=== PATIENT | male | born 1950 | race Two or more races ===

== ENCOUNTER → 2024-12-13 | Outpatient (CLI) | payer MEDICARE, MEDICAID, SELFPAY ==
[2024-12-13 10:31] LABS: Basophils # (Auto) 0.1 Thou/mm3 (0.0-0.2); Basophils % (Auto) 1 % (0-2.5); Eosinophils # (Auto) 0.4 Thou/mm3 (0.0-0.5); Eosinophils % (Auto) 4 % (0-10); Hematocrit 47.7 % (41.0-53.0); Hemoglobin 15.6 g/dL (13.5-16.0); Immature Granulocytes % (Auto) 0 % (0-0); Immature Granulocytes Auto 0.04 Thou/mm3 (0.00-0.00); Lymphocytes # (Auto) 2.8 Thou/mm3 (1.0-4.8); Lymphocytes % (Auto) 28 % (10-50); Mean Corpuscular HGB Conc 32.7 g/dl (31.0-37.0); Mean Corpuscular Hemoglobin 31.2 pg (25.0-35.0); Mean Corpuscular Volume 95 fL (80-100); Monocytes # (Auto) 0.6 Thou/mm3 (0.0-0.8); Monocytes % (Auto) 6 % (0-12); Neutrophils # (Auto) 6.2 Thou/mm3 (1.8-7.7); Neutrophils % (Auto) 62 % (37-80); Nucleated Red Blood Cell % 0 /100 WBC (0); Platelet Count 296 Thou/mm3 (140-440); RDW Standard Deviation 43.8 fL (35.1-43.9)
[2024-12-13 10:41] LABS: Collection Type, Urine Clean Catch; Squamous Epithelial Cell,Urine 0 /hpf (0-5)
[2024-12-13 10:43] LABS: Glucose Estimated Average 246 mg/dL (80-131); Hemoglobin A1C 10.2 % Hgb (4.8-6.0)
[2024-12-13 10:52] LABS: Alanine Aminotransferase 31 U/L (10-49); Albumin, Serum 4.6 gm/dL (3.4-4.8); Albumin/Globulin Ratio 1.9 (1.2-2.2); Alkaline Phosphatase 134 U/L (46-116); Anion Gap 8 (7-16); Aspartate Amino Transferase 14 U/L (0-34); BUN/Creatinine Ratio 23 Ratio (12-20); Bilirubin,Total 0.6 mg/dL (0.3-1.2); Blood Urea Nitrogen 18 mg/dL (9-23); Calcium 9.7 mg/dL (8.3-10.6); Calcium (Corrected) 9.7 mg/dL (8.5-10.1); Carbon Dioxide 30.2 mMol/L (20.0-31.0); Cardiac Risk Estimate 3.9 RATIO (4.0-6.7); Chloride 103 mMol/L (98-107); Cholesterol 147 mg/dL (132-200); Creatinine (Component) 0.8 mg/dL (0.6-1.3); Globulin 2.4 gm/dL (2.3-3.5); Glucose 122 mg/dL (74-106); HDL Cholesterol 38 mg/dL (40-60); LDL Cholesterol,Calculated 86 mg/dL (0-130); Osmolality,Calculated 284 (275-295); Potassium 4.8 mMol/L (3.4-5.1); Sodium 141 mMol/L (136-145); Triglycerides 115 mg/dL (30-150); eGFR > 60 See Note
[2024-12-13 11:38] LABS: Bilirubin,Urine Negative (Negative); Blood,Urine Negative (Negative); Clarity,Urine Clear (Clear/Hazy); Color,Urine Lt-Yellow (Lt Yel-Yel); Glucose, Urine 4+ (Negative); Ketones,Urine Negative (Negative); Leukocyte Esterase,Urine Negative (Negative); Nitrite,Urine Negative (Negative); Protein,Urine Trace (Neg - Trace); RBC,Urine 1 /hpf (0-3); Specific Gravity,Urine 1.026 (1.001-1.035); Urobilinogen,Urine Negative mg/dL (0.0-1.0); WBC,Urine < 1 /hpf (0-5)
[2024-12-13 11:44] LABS: Creatinine MALB Rnd Ur 72 mg/dL (30-125); Microalbumin Creat Ratio 83 mg/gCrea (<30); Microalbumin, Random Urine 60 mg/L (0-300)
== END | disposition home or self-care (01) ==
PROVIDERS: PCP Internal Medicine; Referring Provider Internal Medicine; Visit Provider Internal Medicine
DX: E11.9 Type 2 diabetes mellitus without complications (principal); I10 Essential (primary) hypertension; E78.5 Hyperlipidemia, unspecified
CPT/HCPCS: 36415; 80053; 80061; 81001; 82043; 82570; 83036; 85025

== ENCOUNTER → 2025-03-27 | Outpatient (CLI) | payer OTHER, MEDICAID, SELFPAY ==
[2025-03-27 10:48] LABS: Glucose Estimated Average 206 mg/dL (80-131); Hemoglobin A1C 8.8 % Hgb (4.8-6.0)
[2025-03-27 11:07] LABS: Creatinine MALB Rnd Ur 84 mg/dL (30-125); Microalbumin Creat Ratio 117 mg/gCrea (<30); Microalbumin, Random Urine 98 mg/L (0-300)
[2025-03-27 11:14] LABS: Alanine Aminotransferase 26 U/L (10-49); Albumin, Serum 4.5 gm/dL (3.4-4.8); Albumin/Globulin Ratio 1.6 (1.2-2.2); Alkaline Phosphatase 123 U/L (46-116); Anion Gap 11 (7-16); Aspartate Amino Transferase 18 U/L (0-34); BUN/Creatinine Ratio 18 Ratio (12-20); Bilirubin,Total 0.5 mg/dL (0.3-1.2); Blood Urea Nitrogen 16 mg/dL (9-23); Calcium 8.9 mg/dL (8.3-10.6); Calcium (Corrected) 8.9 mg/dL (8.5-10.1); Carbon Dioxide 27.1 mMol/L (20.0-31.0); Cardiac Risk Estimate 4.3 RATIO (4.0-6.7); Chloride 106 mMol/L (98-107); Cholesterol 121 mg/dL (132-200); Creatinine (Component) 0.9 mg/dL (0.6-1.3); Globulin 2.8 gm/dL (2.3-3.5); Glucose 141 mg/dL (74-106); HDL Cholesterol 28 mg/dL (40-60); LDL Cholesterol,Calculated 73 mg/dL (0-130); Osmolality,Calculated 290 (275-295); Potassium 4.5 mMol/L (3.4-5.1); Sodium 144 mMol/L (136-145); Total Protein 7.3 gm/dL (5.7-8.2); Triglycerides 98 mg/dL (30-150); eGFR > 60 See Note
== END | disposition home or self-care (01) ==
PROVIDERS: PCP Internal Medicine; Referring Provider Internal Medicine; Visit Provider Internal Medicine
DX: E11.9 Type 2 diabetes mellitus without complications (principal); I10 Essential (primary) hypertension; E78.5 Hyperlipidemia, unspecified
CPT/HCPCS: 36415; 80053; 80061; 82043; 82570; 83036

== ENCOUNTER → 2025-07-25 | Outpatient (CLI) | payer OTHER, MEDICAID, SELFPAY ==
[2025-07-25 11:39] LABS: Glucose Estimated Average 226 mg/dL (80-131); Hemoglobin A1C 9.5 % Hgb (4.8-6.0)
[2025-07-25 11:50] LABS: Alanine Aminotransferase 24 U/L (10-49); Albumin, Serum 4.5 gm/dL (3.4-4.8); Albumin/Globulin Ratio 1.8 (1.2-2.2); Alkaline Phosphatase 110 U/L (46-116); Anion Gap 11 (7-16); Aspartate Amino Transferase 18 U/L (0-34); BUN/Creatinine Ratio 18 Ratio (12-20); Bilirubin,Total 0.7 mg/dL (0.3-1.2); Blood Urea Nitrogen 14 mg/dL (9-23); Calcium 9.8 mg/dL (8.3-10.6); Calcium (Corrected) 9.8 mg/dL (8.5-10.1); Carbon Dioxide 24.8 mMol/L (20.0-31.0); Cardiac Risk Estimate 4.1 RATIO (4.0-6.7); Chloride 107 mMol/L (98-107); Cholesterol 120 mg/dL (132-200); Creatinine (Component) 0.8 mg/dL (0.6-1.3); Globulin 2.5 gm/dL (2.3-3.5); Glucose 98 mg/dL (74-106); HDL Cholesterol 29 mg/dL (40-60); LDL Cholesterol,Calculated 71 mg/dL (0-130); Osmolality,Calculated 285 (275-295); Potassium 4.5 mMol/L (3.4-5.1); Sodium 143 mMol/L (136-145); Total Protein 7.0 gm/dL (5.7-8.2); Triglycerides 100 mg/dL (30-150); eGFR > 60 See Note
[2025-07-25 12:52] LABS: Creatinine MALB Rnd Ur 87 mg/dL (30-125); Microalbumin Creat Ratio 83 mg/gCrea (<30); Microalbumin, Random Urine 72 mg/L (0-300)
== END | disposition home or self-care (01) ==
LOC: COPL 10:40
PROVIDERS: PCP Internal Medicine; Referring Provider Internal Medicine; Visit Provider Internal Medicine
DX: E11.9 Type 2 diabetes mellitus without complications (principal); I10 Essential (primary) hypertension; E78.5 Hyperlipidemia, unspecified
CPT/HCPCS: 36415; 80053; 80061; 82043; 82570; 83036

== ENCOUNTER 2025-08-04 18:43 | Inpatient (IN) | payer OTHER, MEDICAID, MEDICARE, SELFPAY ==
[2025-08-04 19:13] VITALS: BP 148/80; PULSE 95; RESP 18; TEMP 37.3; O2SAT 97; BMI 27.1
--- NOTE | 2025-08-04 19:15 | XR_ITS ---
Examination: Foot, right, 3 views Technique: AP, oblique, lateral views foot, 3 views Date and time of exam: August 04, 2025, 1950 hrs. Indications: Redness swelling and pain involving the foot this week Findings: Severe osteopenia Soft tissue vascular calcification Soft tissue swelling about the fourth digit with early cortical erosion involving the ungual tuft tip distal phalanx fourth digit No foreign body Impression: Suspicious for early osteomyelitis ungual tuft tip distal phalanx fourth digit, consider MRI foot without contrast follow-up
[2025-08-04 19:57] LABS: Basophils # (Auto) 0.0 Thou/mm3 (0.0-0.2); Basophils % (Auto) 1 % (0-2.5); Eosinophils # (Auto) 0.2 Thou/mm3 (0.0-0.5); Eosinophils % (Auto) 3 % (0-10); Hematocrit 45.8 % (41.0-53.0); Hemoglobin 15.1 g/dL (13.5-16.0); Immature Granulocytes Auto 0.04 Thou/mm3 (0.00-0.00); Lymphocytes # (Auto) 1.8 Thou/mm3 (1.0-4.8); Lymphocytes % (Auto) 21 % (10-50); Mean Corpuscular HGB Conc 33.0 g/dl (31.0-37.0); Mean Corpuscular Hemoglobin 31.8 pg (25.0-35.0); Mean Corpuscular Volume 96 fL (80-100); Monocytes # (Auto) 0.7 Thou/mm3 (0.0-0.8); Monocytes % (Auto) 8 % (0-12); Neutrophils # (Auto) 5.9 Thou/mm3 (1.8-7.7); Neutrophils % (Auto) 68 % (37-80); Nucleated Red Blood Cell # 0.00 Thou/mm3 (0.00-0.00); Nucleated Red Blood Cell % 0 /100 WBC (0); Platelet Count 239 Thou/mm3 (140-440); RDW Standard Deviation 45.7 fL (35.1-43.9); Red Blood Count 4.75 Miln/mm3 (4.50-5.90); White Blood Count 8.7 Thou/mm3 (3.8-10.6)
[2025-08-04 20:09] LABS: Alanine Aminotransferase 23 U/L (10-49); Albumin, Serum 4.7 gm/dL (3.4-4.8); Albumin/Globulin Ratio 1.7 (1.2-2.2); Alkaline Phosphatase 109 U/L (46-116); Anion Gap 11 (7-16); Aspartate Amino Transferase 16 U/L (0-34); BUN/Creatinine Ratio 17 Ratio (12-20); Bilirubin,Total 0.5 mg/dL (0.3-1.2); Blood Urea Nitrogen 15 mg/dL (9-23); Calcium 9.6 mg/dL (8.3-10.6); Calcium (Corrected) 9.6 mg/dL (8.5-10.1); Carbon Dioxide 24.2 mMol/L (20.0-31.0); Chloride 104 mMol/L (98-107); Creatinine (Component) 0.9 mg/dL (0.6-1.3); Estimated Creatinine Clearance 65.3 mL/min (>60); Globulin 2.7 gm/dL (2.3-3.5); Glucose 287 mg/dL (74-106); Osmolality,Calculated 288 (275-295); Potassium 4.4 mMol/L (3.4-5.1); Sodium 139 mMol/L (136-145); Total Protein 7.4 gm/dL (5.7-8.2); eGFR > 60 See Note
[2025-08-04] MEDS: Vancomycin Inj 1,000 MG in SODIUM CHLORIDE 0.9% 250 ML 250 ML 150 MG IV (20:09)
[2025-08-04] MEDS: BACITRACIN OINT 1 GM PACKET TOP (20:10)
--- NOTE | 2025-08-04 20:25 | EDNOTE_ITS ---
ED Skin Abcess FB-RME/HPI General Chief complaint: Ankle/Foot Injury Stated complaint: RIGHT 4TH TOE PURPLE/BURNING FOR AWHILE Time Seen by Provider: 08/04/25 18:46 Arrival date/time: 08/04/25 18:43 This is a case of 75-year-old male with history of diabetes came in in the emergency room due to pain swelling redness on the fourth toe right foot patient states that he noticed the pain 1 week prior to arrival in the emergency room with some redness and swelling worsening of the symptoms now there an open wound on the posterior aspect of the fourth toe with drainage and swelling and the redness extended on his right foot due to worsening of the symptoms this patient decided to sought consult here in the emergency room Limitations: no limitations Related Data Allergies Allergy/AdvReac Type Severity Reaction Status Date / Time Penicillins Allergy Severe Swelling Verified 08/04/25 18:49 of Lip/Tongue/Throat Review of Systems Review of Systems Systems Reviewed: All systems reviewed, normal except as documented Constitutional Constitutional: Reports system reviewed and no additional complaints, except as documented and Reports as per HPI Cardiovascular Cardiovascular: Reports system reviewed and no additional complaints, except as documented and Reports as per HPI Respiratory Respiratory: Reports system reviewed and no additional complaints, except as documented and Reports as per HPI Gastrointestinal Gastrointestinal: Reports system reviewed and no additional complaints, except as documented and Reports as per HPI Genitourinary Genitourinary: Reports system reviewed and no additional complaints, except as documented and Reports as per HPI Integumentary/Breasts Skin/Breast: Reports other (Toe ulcer cellulitis foot) Neurologic Neurologic: Reports system reviewed and no additional complaints, except as documented and Reports as per HPI Past Medical History Past Medical History CARDIAC: Positive Cardiac Disorders, Hypercholesterolemia and Hypertension; Negative Congestive Heart Failure RESPIRATORY: Negative Chronic Obstructive Pulmonary Disease (COPD) GENITOURINARY: Negative Renal Disease ENDOCRINE: Positive Endocrine Disorders and Diabetes Mellitus Type 2; Negative Diabetes Mellitus Type 1 Social History SMOKING STATUS: Never smoker ED Exam General Limitations: Present no limitations General appearance: Present alert, in no apparent distress and other (Patient is awake alert oriented not in distress nontoxic looking well-hydrated well- nourished) Head Head exam: Present atraumatic, normocephalic and normal inspection Eye Eye exam: Present normal appearance, PERRL and EOMI ENT ENT exam: Present normal exam, normal oropharynx and mucous membranes moist Neck Neck exam: Present normal inspection, full ROM and trachea midline Chest Chest inspection: Present normal inspection and symmetric chest wall rise; Absent tenderness Respiratory Respiratory exam: Present normal lung sounds bilaterally; Absent respiratory distress, wheezes, stridor, accessory muscle use or prolonged expiratory phase Cardiovascular Cardiovascular exam: Present regular rate, normal rhythm and normal heart sounds; Absent bradycardia, tachycardia, irregular rhythm, systolic murmur or diastolic murmur Abdominal Exam Abdominal exam: Present soft; Absent distention, tenderness, guarding, rebound, normal bowel sounds, diminished bowel sounds, hyperactive bowel sounds, hypoactive bowel sounds or organomegaly Extremities Exam Extremities exam: Present normal inspection and full ROM Expanded Lower Extremity Exam Ankle exam: Present tenderness, swelling and other (ROM intact neurovascular intact negative calf tenderness negative Coffey signs negative Homans signs); Absent abrasion, laceration, ecchymosis, deformity, crepitus, dislocation, erythema, tenderness over talofibular lig or anterior draw sign Foot/toe exam: Present tenderness, swelling, erythema and other (Noted a small ulcer on the posterior aspect of the fourth toe right blocking machine tender swelling redness with foul-smelling discharge redness extended to the right foot suggestive of cellulitis no abscess); Absent abrasion, laceration, ecchymosis, deformity, crepitus, dislocation, amputation, puncture wound, foreign body, calcaneal tenderness, tenderness at base of 5th metatarsal, nail avulsion or subungual hematoma Back Exam Back exam: Present normal inspection and full ROM Neurological Exam Neurological exam: Present alert, oriented X3, CN II-XII intact and normal gait; Absent motor sensory deficit or reflexes normal Psychiatric Psychiatric exam: Present normal affect and normal mood Skin Skin exam: Present warm, dry, intact, normal color and other (Cellulitis foot ulcer of the 4rt toe right foot no abscess noted) Course Quality Measures none Orders Category Date Time Status Wound Care NOW Care 08/04/25 19:15 Active XR foot comp RT min 3V Stat Exams 08/04/25 19:15 Completed CBC Stat Lab 08/04/25 19:28 Completed CMP [Comprehensive Metabolic Panel] Stat Lab 08/04/25 19:28 Completed Venous Blood Gas Stat Lab 08/04/25 19:28 Completed Bacitracin Oint pkt Med 08/04/25 19:15 Discontinued 1 gm TOP X1 ONE Insulin Regular Med 08/04/25 20:26 Discontinued 4 unit IV X1 ONE Sodium Chloride 0.9% 1000 ml [Ns] 1,000 ml Med 08/04/25 20:26 Discontinued IV 999 mls/hr Vancomycin Inj 1,000 mg Med 08/04/25 19:15 Discontinued Sodium Chloride 0.9% 250 ml [Ns] 250 ml IV X1 Vital Signs Vital signs: Vital Signs Temperature 99.1 F 08/04/25 19:13 Pulse Rate 95 08/04/25 19:13 Respiratory Rate 18 08/04/25 19:13 Blood Pressure 148/80 H 08/04/25 19:13 Pulse Oximetry (%) 97 08/04/25 19:13 Oxygen Delivery Method Room Air 08/04/25 19:13 Oxygen saturation is 97% in room air Skin / Abscess / Foreign Body MDM Narrative MDM Narrative:: This is a case of 75-year-old male with history of diabetes came in in the emergency room due to pain swelling redness on the fourth toe right foot patient states that he noticed the pain 1 week prior to arrival in the emergency room with some redness and swelling worsening of the symptoms now there an open wound on the posterior aspect of the fourth toe with drainage and swelling and the redness extended on his right foot due to worsening of the symptoms this patient decided to sought consult here in the emergency room physical examination patient is awake alert oriented not in distress nontoxic looking vital signs stable BP stable nontachycardic nontachypneic afebrile and nonhypoxic patient noted to have swelling and tenderness of the left right ankle ROM intact neurovascular intact noted right foot cellulitis on the dorsal aspect but no abscess noted ulcer posterior fourth toe right foot with tenderness swelling discharge foul-smelling discharge but no abscess ROM intact neurovascular intact no calf tenderness negative Coffey signs negative Homans signs the rest of the physical examination neurological exam is normal and unremarkable patient blood test showed no leukocytosis no anemia kidney and liver function is normal no electrolyte imbalance patient blood sugar is 287 hyperglycemia test patient was given a bolus of normal saline and a regular insulin for milligram IV push for hyperglycemia still pending venous blood glass patient and iron gram is normal thus patient is not having DVT patient x-ray showed osteomyelitis thus patient was given vancomycin based on my physical examination and history and the result of the imaging and blood test patient need to be admitted for further evaluation and treatment and for possible IV antibiotic I spoke to Dr. shelton discussed patient condition history and physical examination relayed result of blood test and imaging and agreed that the patient need to be admitted for further evaluation and treatment and accept patient admission discussed with the patient the treatment and admission and agreed Patient data External records reviewed:: [facility] previous records Clinical information provided by:: patient Social determinants that could affect healthcare access:: none (None) Patient has the following chronic illnesses:: None How is presenting disease/condition affected by chronic disease/condition?: no chronic disease Evaluation data The following diagnostics were reviewed and interpreted by me:: lab results and radiology exam(s) Lab and/or radiology exams considered but not ordered:: Reviewed Interpretation Summary: Reviewed Medications / Prescriptions Medications or Prescriptions considered but not ordered:: Given Medication administrations:: Medication Administration History Discontinued Medications Bacitracin (Bacitracin Oint 1 Gm Packet) 1 gm TOP X1 ONE Stop: 08/04/25 19:16 Last Admin: 08/04/25 20:10 Dose: 1 gm Documented By: CCT Vancomycin HCl 1,000 mg/ (Sodium Chloride) 250 mls @ 150 mls/hr IV X1 ONE Stop: 08/04/25 20:54 Last Admin: 08/04/25 20:09 Dose: 150 mls/hr Documented By: CCT Sodium Chloride (Ns) 1,000 mls @ 999 mls/hr IV .Q1H1M ONE Stop: 08/04/25 21:26 Last Admin: 08/04/25 20:57 Dose: 999 mls/hr Documented By: CCT Insulin Human Regular (Insulin Hum Regular 1 Unit/0.01 Ml (Per Unit)) 4 unit IV X1 ONE Stop: 08/04/25 20:27 Last Admin: 08/04/25 20:52 Dose: 4 unit Documented By: CCT Co-signed By: OA Given Consultations Consultation(s) initiated? (list below): Yes Consultation #1 (Physician, Specialty, Details): dr shelton accept patient admission agreed that the patient need to be admitted for further evaluation and treatment and for IV antibiotic for osteomyelitis Diagnosis Skin/Abscess Differential Diagnosis: other (Cellulitis ulcer abscess osteomyelitis) Most likely diagnosis given after review of the tests above:: Osteomyelitis Admission Indicated Admission indicated?: indicated Explain why admission is indicated or not indicated:: Osteomyelitis Admission Request Was there a request for admission?: Yes Admission Attestation Admission request attestation: Discussed case with [] from Hospitalist service regarding admission. Discussed patients ED course, exam findings, labs, and radiology results. The Hospitalist [agrees,declines] to accept the patient for admission. Disposition Plan Disposition Plan: Admit Discharge Plan Plan Patient Disposition: Admit Acute Care w/in Hospital Patient condition on transfer: Stable Prescriptions/Referrals Referrals: John Shaikh MD [Primary Care Provider, Nephrology] - In 1 week Problem List Clinical Impression: Diabetic toe ulcer, Cellulitis of foot, Acute osteomyelitis of toe, Hyperglycemia Patient/Caregiver Discharge Instructions Education Materials: High Blood Sugar (Hyperglycemia), Osteomyelitis Dc, ED Cellulitis Print Language: Tamazight Stand Alone Forms: Perla Award Info., Patient Portal Info Letter PA/[employer] Supervising Physician PA/[employer] Supervising Physician: Dr. Hess
[2025-08-04 20:28] VITALS: BP 117/61; PULSE 83; RESP 18; TEMP 37; O2SAT 95
[2025-08-04 20:32] LABS: Base Excess, Venous 1 (-3-3); O2 Saturation, Venous 90 % (96-97); PCO2, Venous 40 mmHg (36-56); PO2, Venous 58 mmHg (15-58); pH, Venous 7.41 (7.33-7.66)
[2025-08-04] MEDS: INSULIN HUM REGULAR 1 UNIT/0.01 ML (PER UNIT) 4 UNIT IV (20:52)
[2025-08-04] MEDS: SODIUM CHLORIDE 0.9% 1000 ML 1,000 ML 999 ML IV (20:57)
[2025-08-04 22:40] VITALS: BP 147/65; PULSE 74; RESP 17; TEMP 36.9; O2SAT 97
[2025-08-05] VITALS (7 sets, daily range): BP systolic 100–144; BP diastolic 43–77; PULSE 67–678; RESP 18; TEMP 36.2–36.9; O2SAT 95–98; BMI 27.4
--- NOTE | 2025-08-05 00:24 | ESHP_ITS ---
<Statement entered by Shaan Campbell MD - 08/05/25 07:22> 75-year-old male with past medical history of DM2, hyperlipidemia, and hypertension was admitted on 08/04/2025 due to right fourth toe osteomyelitis. Patient stated that he had been experiencing some burning sensation in his lower extremities for the past few days and that today his son-in-law saw his foot swollen with his toe discolored and told him to go to the hospital. Patient was found to have osteomyelitis on x-ray, started on cefepime given there is very little suspicion for anaphylactic shock penicillins and given that Pseudomonas is resistant to ciprofloxacin based on antibiogram decided to proceed with cefepime and Vanco. I have personally examined the patient. Note was reviewed and agree with the care plan as documented please refer to the note below for further details. Case disclosed with attending Dr. Bo Campbell, PGY 2 Documentation for date of: 08/05/25 HPI History of Present Illness History of present illness: Mr. Baeza, is a 75 year-old male with past medical history hypertension, hyperlipidemia and type 2 diabetes presented to the ED on 08/04/2025 with chief complaint right foot fourth toe redness and edema Patient reports within the last 8 days he noticed increased erythema and swelling of the right foot specifically around the right toe. However denies any recent trauma to the right fourth toe digit, or stepping on anything. Patient stated he only notices for the last few days because he has not been bending down to check his feet due to his back pain. Patient stated he was not aware of the increased redness and swelling until his son-in-law mention it to him. Decided to follow his son-in-law advise to come to the ED take get evaluation for his feet Patient describes sensations of burning feeling localized on the right to, without radiation. Denies numbness or tingling to lower extremities. Reports this is a new symptom and has not occured previously. Also denies chest pain,,diaphoresis,nausea, vomiting, abdominal pain, urinary changes. Patient primary care provider is Dr. Shaikh. ED Course: -Initial vitals were BP 140/80, pulse 95, respiratory 18, temperature 91.1, O2 sat 97% on room air -Labs significant for glucose 287 otherwise unremarkable -Imaging included right foot x-ray showed severe osteopenia soft tissue swelling around the fourth digit with early cortical erosion involving the ungual tuft deep distal phalanx fourth digit. Suspicion for early osteomyelitis -In the ED, patient was given vancomycin IV x 1, bacitracin, insulin regular 4 unit x 1. -Patient was admitted for early suspicion osteomyelitis evaluation and management. Review of Systems Review of systems otherwise negative except what is mentioned above. Past Medical History: Mentioned above Family History: Noncontributory Surgical History: Right hip replacement Social History: Denies history of smoking, denies current alcohol use, denies recreational drug use Current Medications: Atorvastatin 20, benazepril milligram, Jardiance 25 mg, gabapentin 300 mg, glipizide-metformin. Allergies: Penicillin,however stated a doctor told him he has allergy to penicillin however he does not know the effect of the medication. Exam Vital Signs Temp Pulse Resp BP Pulse Ox O2 Del Method 98.5 F 70 18 131/75 H 95 Room Air 08/05/25 00:19 08/05/25 00:08/05/25 00:08/05/25 00:19 08/05/25 00:08/05/25 00:19 Narrative Exam General: Alert, no acute distress.conversational and non-toxic appearing. Skin: Warm, dry, intact. No rash or ecchymoses. Head: Normocephalic, atraumatic. Eye: Normal conjunctiva, PERRL. Throat: Oral mucosa moist. No obvious lesions in oropharynx. Cardiovascular: Regular rate and rhythm, no murmur, +S1/S2. Respiratory: Lungs are clear to auscultation, respirations unlabored, no crackles, no wheezing. Gastrointestinal: Soft, nontender, non-distended. No guarding or rebound tenderness. Extremities: Right forth toe erythematous and edematous.Small ulcer on plantar mild pus drainage, painless.Ulcer on plantar Pitting edema right foot. Diminished dorsalis pedis and posterior tibial pulse of the right feet. Sensation intact no edema, no cyanosis, no clubbing. Neuro: Alert and oriented x3.No focal deficits observed. Conversant, moving all extremities. No overt cerebellar signs/incoordination. Psychiatric: Cooperative, appropriate affect Results: Labs 08/05/25 04:43 08/05/25 04:43 Labs: Short CBC 08/04/25 Range/Units 19:28 WBC 8.7 (3.8-10.6) Thou/mm3 Hgb 15.1 (13.5-16.0) g/dL Hct 45.8 (41.0-53.0) % Plt Count 239 (140-440) Thou/mm3 BMP 08/04/25 19:28 Sodium 139 Potassium 4.4 Chloride 104 Carbon Dioxide 24.2 BUN 15 Creatinine 0.9 Glucose 287 H Calcium 9.6 Liver Function 08/04/25 Range/Units 19:28 Total Bilirubin 0.5 (0.3-1.2) mg/dL AST 16 (0-34) U/L ALT 23 (10-49) U/L Alkaline Phosphatase 109 (46-116) U/L Albumin 4.7 (3.4-4.8) gm/dL ABG Interpretation ABG results: 08/04/25 19:28 VBG pH 7.41 VBG pCO2 40 VBG pO2 58 VBG Base Excess 1 Quality Measures Quality Measures none Advance care planning discussed with:: patient and other Medications Home Medications and Allergies Home Medications ?Medication ?Instructions ?Recorded ?Confirmed ?Type atorvastatin 20 mg tablet 20 mg PO HS 08/05/25 5 History benazepril 5 mg tablet 5 mg PO QDAY 08/05/25 History empagliflozin 25 mg tablet 25 mg PO QDAY 08/05/2507/17 History (Jardiance) gabapentin 300 mg capsule 300 mg PO Q8HR 08/05/2507/17 History glipizide 5 mg-metformin 500 mg 1 tab PO BID 08/05/25 08/05/25 History tablet Allergies Allergy/AdvReac Type Severity Reaction Status Date / Time Penicillins Allergy Severe Swelling Verified 08/04/25 18:49 of Lip/Tongue/Throat Visit Medications Acetaminophen (Acetaminophen 325 Mg Tablet) 650 mg PO Q6H PRN PRN Reason: Fever >101.5 Stop: 09/04/25 00:11 Dextrose (Dextrose 50%-Water Inj 50 Ml Syringe) 25 ml IV Q15MIN PRN PRN Reason: BG 50-70 responsive npo pt Stop: 09/04/25 00:17 Dextrose (Dextrose 50%-Water Inj 50 Ml Syringe) 50 ml IV Q15MIN PRN PRN Reason: BG <50 OR BG <70 & pt unresponsive Stop: 09/04/25 00:17 Glucagon (Glucagon Inj 1 Mg Vial) 1 mg IM Q15MIN PRN PRN Reason: BG <70, and no IV access Ciprofloxacin/Dextrose (Cipro Ivpb) 400 mg in 200 mls @ 200 mls/hr IV Q8H PETTY Stop: 08/12/25 00:29 Insulin Human Lispro (Insulin Lispro (Admelog) 1 Unit/0.01 Ml Unit) 0 unit SC ACHS [facility]; Protocol Stop: 09/04/25 07:29 Pharmacy Consult (Vancomycin Pharmacy To Dose 1 Each Each) 1 each IV QDAY [facility] Stop: 09/04/25 08:59 Discontinued Medications Acetaminophen (Acetaminophen Supp 650 Mg Supp) 650 mg IN Q6H PRN PRN Reason: PAIN SCALE 1-3 (mild Stop: 09/04/25 00:11 Bacitracin (Bacitracin Oint 1 Gm Packet) 1 gm TOP X1 ONE Stop: 08/04/25 19:16 Last Admin: 08/04/25 20:10 Dose: 1 gm Vancomycin HCl 1,000 mg/ (Sodium Chloride) 250 mls @ 150 mls/hr IV X1 ONE Stop: 08/04/25 20:54 Last Infusion: 08/04/25 22:36 Dose: Infused Sodium Chloride (Ns) 1,000 mls @ 999 mls/hr IV .Q1H1M ONE Stop: 08/04/25 21:26 Last Infusion: 08/04/25 22:36 Dose: Infused Insulin Human Regular (Insulin Hum Regular 1 Unit/0.01 Ml (Per Unit)) 4 unit IV X1 ONE Stop: 08/04/25 20:27 Last Admin: 08/04/25 20:52 Dose: 4 unit Assessment & Plan Plan Mr. Baeza, is a 75 year-old male with past medical history hypertension, hyperlipidemia and type 2 diabetes presented to the ED on 08/04/2025 with chief complaint right foot fourth toe redness and sweeling. Admitted for suspicion of osteomyelitis evaluation and management. # Right foot cellulitis # Suspicion for osteomyelitis of fourth right toe # Diabetic toe ulcer Patient presents with 8 days of right right fourth toe erythema, edema and burning sensation.Right foot edematous and non-tender to palpation. Afebrile, no leukocytosis. Cellulitis likely secondary to diabetic ulcers patient does not regularly check his feet for injuries or abnormalities. A ED doctor in the past told the patient he has allergy to penicillin but does not recall having any symptoms to the medication. Discontinue ciprofloxacin because upon reviewing the antibiotic susceptibility biogram for [place], Pseudomonas showed resistance to ciprofloxacin. As a result, the decision was made to initiate cefepime therapy, given there is no documented allergy to this medication. -Started cefepime 2gm IV -Blood culture ordered, pending -ESR and CRP, pending -Wound referral and care -ID consult -Gen surg consult # Insulin-dependent type 2 diabetes # Diabetic neuropathy On admission glucose 322, patient is 4 units of insulin regular. Glucose improved to 163. Last A1c on 07/25/2025 was 9.5. Patient on home Jardiance 25 mg, glipizide/metformin 1 -Resume home gabapentin 300 mg for neuropathy -Start insulin sliding scale -Glucose checks ACHS #Hyperlipidemia -Resume home Lipitor 20 mg p.o. at bedtime #Primary hypertension Home medication benazepril 5 mg p.o Hospital management: Lines: peripheral IV Diet: Cardiac assist DVT prophylaxis: Heparin SC Disposition: Med telemetry 4L suspicion of osteomyelitis evaluation and management CODE STATUS: Full code Patient seen and assessed under supervision of attending physician and discuss with senior resident Dr. Kaur PGY-2 Ivanna Roldan MD PGY-1, Internal Medicine Please note: this document was transcribed using voice recognition technology; minor inaccuracies may be present. Attending Provider Attestation/Addendum After examination of the patient and review of the clinical data I feel that this patient needs admission to the hospital for further treatment/evaluation. Plan of care discussed with patient and is in agreement. I Kush Soriano MD, attest that I was physically present for urbano portions of evaluation, and examined patient, labs and imagings and plan of care were discussed with IM residents team, and I agree with the findings and plans documented above.
--- NOTE | 2025-08-05 00:58 | PC.NURSE ---
Report given to JAZMIN Vicente Med-surg
[2025-08-05] MEDS: CIPROFLOXACIN/D5w 400 MG IVPB 400 MG/200 ML BAG 200 MG IV (01:03)
--- NOTE | 2025-08-05 01:34 | PC.NURSE ---
Called Dr. Kaur for patient's diet order. stated he'll put in the order.
[2025-08-05] MEDS: CEFEPIME INJ 2 GM in SODIUM CHLORIDE 0.9% (Popper) 50 ML IV ×3 (03:58→21:20)
[2025-08-05] MEDS: GABAPENTIN 300 MG CAPSULE PO ×3 (05:26→21:28)
[2025-08-05 05:27] LABS: Sed Rate (ESR) 20 mm/hr (0-20)
[2025-08-05 05:35] LABS: Basophils # (Auto) 0.0 Thou/mm3 (0.0-0.2); Basophils % (Auto) 1 % (0-2.5); Eosinophils # (Auto) 0.3 Thou/mm3 (0.0-0.5); Eosinophils % (Auto) 4 % (0-10); Hematocrit 42.6 % (41.0-53.0); Hemoglobin 13.8 g/dL (13.5-16.0); Immature Granulocytes Auto 0.04 Thou/mm3 (0.00-0.00); Lymphocytes # (Auto) 1.9 Thou/mm3 (1.0-4.8); Lymphocytes % (Auto) 26 % (10-50); Mean Corpuscular HGB Conc 32.4 g/dl (31.0-37.0); Mean Corpuscular Hemoglobin 31.7 pg (25.0-35.0); Mean Corpuscular Volume 98 fL (80-100); Monocytes # (Auto) 0.8 Thou/mm3 (0.0-0.8); Monocytes % (Auto) 10 % (0-12); Neutrophils # (Auto) 4.4 Thou/mm3 (1.8-7.7); Neutrophils % (Auto) 59 % (37-80); Nucleated Red Blood Cell # 0.00 Thou/mm3 (0.00-0.00); Nucleated Red Blood Cell % 0 /100 WBC (0); Platelet Count 190 Thou/mm3 (140-440); RDW Standard Deviation 44.7 fL (35.1-43.9); Red Blood Count 4.36 Miln/mm3 (4.50-5.90); White Blood Count 7.5 Thou/mm3 (3.8-10.6)
[2025-08-05 06:02] LABS: Anion Gap 8 (7-16); BUN/Creatinine Ratio 13 Ratio (12-20); Blood Urea Nitrogen 9 mg/dL (9-23); C-Reactive Protein 0.6 mg/dL (0.0-0.9); Calcium 8.8 mg/dL (8.3-10.6); Carbon Dioxide 26.6 mMol/L (20.0-31.0); Chloride 108 mMol/L (98-107); Creatinine (Component) 0.7 mg/dL (0.6-1.3); Estimated Creatinine Clearance 90.8 mL/min (>60); Glucose 106 mg/dL (74-106); Magnesium 2.0 mg/dL (1.6-2.6); Osmolality,Calculated 283 (275-295); Potassium 4.1 mMol/L (3.4-5.1); Sodium 143 mMol/L (136-145); eGFR > 60 See Note
[2025-08-05] MEDS: HEPARIN SOD INJ 5000 UNIT/ML VIAL SC ×2 (09:00→20:42)
--- NOTE | 2025-08-05 09:02 | PD.RESPRO ---
Documentation for date of: 08/05/25 Subjective Subjective Interval history: Mr. Baeza, is a 75 year-old male with past medical history hypertension, hyperlipidemia and type 2 diabetes presented to the ED on 08/04/2025 with chief complaint right foot fourth toe redness and edema Patient reports within the last 8 days he noticed increased erythema and swelling of the right foot specifically around the right toe. However denies any recent trauma to the right fourth toe digit, or stepping on anything. Patient stated he only notices for the last few days because he has not been bending down to check his feet due to his back pain. Patient stated he was not aware of the increased redness and swelling until his son-in-law mention it to him. Decided to follow his son-in-law advise to come to the ED take get evaluation for his feet Patient describes sensations of burning feeling localized on the right to, without radiation. Denies numbness or tingling to lower extremities. Reports this is a new symptom and has not occured previously. Also denies chest pain,,diaphoresis,nausea, vomiting, abdominal pain, urinary changes. Patient primary care provider is Dr. Shaikh. ED Course: -Initial vitals were BP 140/80, pulse 95, respiratory 18, temperature 91.1, O2 sat 97% on room air -Labs significant for glucose 287 otherwise unremarkable -Imaging included right foot x-ray showed severe osteopenia soft tissue swelling around the fourth digit with early cortical erosion involving the ungual tuft deep distal phalanx fourth digit. Suspicion for early osteomyelitis -In the ED, patient was given vancomycin IV x 1, bacitracin, insulin regular 4 unit x 1. -Patient was admitted for early suspicion osteomyelitis evaluation and management. 08/05/2025: Labs reviewed and patient examined at the bedside. Patient still complains of numbness and tingling in lower extremities. Erythema, swelling, and areas of black discoloration likely represents ongoing necrosis involving the right fourth toe. Foot XR (08/04/2025) showed suspicion for early osteomyelitis. General Surgery, Dr. Zimmer, has been consulted for possible surgical debridement or resection, however, patient did not want to get surgical treatment. Patient will follow up with Interventional Radiologist upon discharge. Will continue with antibiotic treatment in hospital. Exam Vital Signs Temp Pulse Resp BP Pulse Ox O2 Del Method 97.1 F 71 18 142/66 H 96 Room Air 08/05/25 07:59 08/05/25 07:59 08/05/25 07:59 08/05/25 07:59 08/05/25 07:59 08/05/25 07:59 Narrative Exam General: No acute distress, well nourished, AAO x3 Eye: PERRL, EOMI, normal conjunctiva, no scleral icterus HENT: Normocephalic, atraumatic, hearing intact to conversation at normal volume, moist oral mucosa Neck: Supple, non-tender, no JVD, no lymphadenopathy Lungs: Non-labored respirations, symmetric chest rise, Clear to auscultate bilaterally, No wheezing, rhonchi, crackles Heart: Peripheral pulses intact bilaterally, Regular Rate and Rhythm. Abdomen: Soft, non-tender, non-distended, no palpable masses Musculoskeletal: Normal range of motion and strength, Erythema, swelling, painless, black discoloration of right 4th toe. Ulcers in plantar aspects of foot. Skin: Skin is warm, dry, no rashes or lesions. Psychiatric: Cooperative, appropriate mood and affect, Awake and alert, not agitated Neuro: Cranial nerves II-XII grossly intact. Strength 5/5 throughout. Sensations intact to light touch. Objective Labs 08/06/25 05:00 08/06/25 05:00 Labs: Laboratory Results - last 24 hr 08/04/25 08/05/25 19:28 04:43 WBC 8.7 7.5 RBC 4.75 4.36 L Hgb 15.1 13.8 Hct 45.8 42.6 MCV 96 98 MCH 31.8 31.7 MCHC 33.0 32.4 RDW Std Deviation 45.7 H 44.7 H Plt Count 239 190 D Neut % (Auto) 68 59 Lymph % (Auto) 21 26 [place] % (Auto) 8 10 Eos % (Auto) 3 4 Baso % (Auto) 1 1 Neut # (Auto) 5.9 4.4 Lymph # (Auto) 1.8 1.9 [place] # (Auto) 0.7 0.8 Eos # (Auto) 0.2 0.3 Baso # (Auto) 0.0 0.0 Immature Gran # (Auto) 0.04 H 0.04 H Absolute Nucleated RBC 0.00 0.00 Immature Gran % 1 H 1 H Nucleated RBC % 0 0 ESR 20 VBG pH 7.41 VBG pCO2 40 VBG pO2 58 VBG O2 Sat (Adrienne) 90 L VBG Base Excess 1 Sodium 139 143 Potassium 4.4 4.1 Chloride 104 108 H Carbon Dioxide 24.2 26.6 Anion Gap 11 8 BUN 15 9 Creatinine 0.9 0.7 Estim Creat Clear Calc 65.3 90.8 eGFR > 60 > 60 BUN/Creatinine Ratio 17 13 Glucose 287 H 106 D Calculated Osmolality 288 283 Calcium 9.6 8.8 Corrected Calcium 9.6 Magnesium 2.0 Total Bilirubin 0.5 AST 16 ALT 23 Alkaline Phosphatase 109 C-Reactive Prot, Quant 0.6 Total Protein 7.4 Albumin 4.7 Globulin 2.7 Albumin/Globulin Ratio 1.7 ABG Interpretation ABG results: 08/04/25 19:28 VBG pH 7.41 VBG pCO2 40 VBG pO2 58 VBG Base Excess 1 Quality Measures Quality Measures none Advance care planning discussed with:: patient Assessment & Plan Assessment Current Active Medications: Generic Name Dose Route Start Last Admin Trade Name Freq PRN Reason Stop Dose Admin Acetaminophen 650 mg 08/05/25 00:12 Acetaminophen 325 Mg Tablet PO 09/04/25 00:11 Q6H PRN Fever >101.5 Atorvastatin Calcium 20 mg 08/05/25 21:00 Atorvastatin Calcium 20 Mg Tablet PO 09/04/25 20:59 HS PETTY Dextrose 25 ml 08/05/25 00:18 Dextrose 50%-Water Inj 50 Ml Syringe IV 09/04/25 00:17 Q15MIN PRN BG 50-70 responsive npo pt Dextrose 50 ml 08/05/25 00:18 Dextrose 50%-Water Inj 50 Ml Syringe IV 09/04/25 00:17 Q15MIN PRN BG <50 OR BG <70 & pt unresponsive Gabapentin 300 mg 08/05/25 06:00 08/05/25 05:26 Gabapentin 300 Mg Capsule PO 09/04/25 05:59 300 mg Q8HR PETTY Administration Glucagon 1 mg 08/05/25 00:18 Glucagon Inj 1 Mg Vial IM Q15MIN PRN BG <70, and no IV access Heparin Sodium (Porcine) 5,000 unit 08/05/25 09:00 Heparin Sod Inj 5000 Unit/Ml Vial SC 08/19/25 08:59 BID PETTY Cefepime HCl 2 gm/ Sodium 50 mls @ 100 mls/hr 08/05/25 02:23 08/05/25 03:58 Chloride IV 08/12/25 02:22 100 mls/hr Q8H PETTY Administration Vancomycin/Sodium Chloride 750 mg in 150 mls @ 120 mls/hr 08/05/25 10:00 Vancomycin/Ns 750 Mg Ivpb IV 08/12/25 09:59 BID@1000,2200 [facility] Protocol Insulin Human Lispro 0 unit 08/05/25 07:30 08/05/25 07:41 Insulin Lispro (Admelog) 1 Unit/0.01 Ml Unit SC 09/04/25 07:29 Not Given ACHS [facility] Protocol Pharmacy Consult 1 each 08/05/25 09:00 Vancomycin Pharmacy To Dose 1 Each Each IV 09/04/25 08:59 QDAY PRN PROTOCOL Plan Mr. Baeza, is a 75 year-old male with past medical history hypertension, hyperlipidemia and type 2 diabetes presented to the ED on 08/04/2025 with chief complaint right foot fourth toe redness and sweeling. Admitted for suspicion of osteomyelitis evaluation and management. #Osteomyelitis of right 4th toe #Diabetic foot -Diabetic ulcers present. Patient does not regularly check his feet for injuries or abnormalities. -Unlikely severe infection as patient did not exhibit any systemic toxicity or metabolic instability. No leukocytosis, No fever, No rapid or extensive erythema, and foot XR result. -Likely moderate osteomyelitis, as the extend of erythema is >2cm, (involves entire 4th toe). -General Surgery, Dr. Zimmer, has been consulted for possible surgical debridement or resection, however, patient did not want to get surgical treatment. Plan: -Will continue with antibiotic treatment in hospital. -BC pending -Cefepine 2g IV Q8hr (08/05-) and Vancomycin (08/05-) -Patient will follow up with Interventional Radiologist upon discharge. -CTM eletrolytes # Insulin-dependent type 2 diabetes # Diabetic neuropathy On admission glucose 322, patient is 4 units of insulin regular. Glucose improved to 106. Last A1c on 07/25/2025 was 9.5. Patient on home Jardiance 25 mg, glipizide/metformin 1 -Resume home gabapentin 300 mg for neuropathy -Start insulin sliding scale -Glucose checks ACHS #Hyperlipidemia -Resume home Lipitor 20 mg p.o. at bedtime #Primary hypertension Home medication benazepril 5 mg p.o Hospital management: Lines: peripheral IV Diet: Cardiac assist DVT prophylaxis: Heparin SC Disposition: Med surg for management of suspicion of osteomyelitis evaluation and management CODE STATUS: Full code Assessment and plan discussed with my attending physician Dr. Hawa Lott (PGY-1)- Internal medicine resident Attending Provider Attestation/Addendum patient currently seen and examined with resident physician Dr. Lott. Note reviewed, agree with findings and recommendations. rt fourth toe osteomyelitis-- continue abx. sx mitigation supervisor consulted.
--- NOTE | 2025-08-05 10:19 | PD.SURCONS ---
HPI Consult details Consult date: 08/05/25 Reason for consultation narrative: Right foot osteomyelitis History of present illness: 75-year-old male with history of diabetes and hypertension was admitted with pain and swelling of right foot. Patient states that for the past week he has noted increased swelling and erythema of his right foot with discoloration of right fourth toe. He denies history of trauma. X-ray revealed early osteomyelitis of distal right fourth toe. He was started on IV antibiotics and admitted for further management. Review of Systems Constitutional Constitutional: Denies chills and Denies fever(s) Cardiovascular Cardiovascular: Denies chest pain Respiratory Respiratory: Denies cough Gastrointestinal Gastrointestinal: Denies abdominal pain, Denies nausea and Denies vomiting Neurologic Neurologic: Reports system reviewed and no additional complaints, except as documented and Reports as per HPI Hematologic/Lymphatic Hematologic/Lymphatic: Denies easy bleeding and Denies easy bruising Past Medical History Surgical History OTHER SURGICAL HX: Vertebroplasty Social History SMOKING STATUS: Never smoker SUBSTANCE USE: does not use ALCOHOL: Never Meds Home Medications and Allergies Home Medications ?Medication ?Instructions ?Recorded ?Confirmed ?Type atorvastatin 20 mg tablet 20 mg PO HS 08/05/25 08/05/25 History benazepril 5 mg tablet 5 mg PO QDAY 08/05/25 08/05/25 History empagliflozin 25 mg tablet 25 mg PO QDAY 08/05/25 08/05/25 History (Jardiance) gabapentin 300 mg capsule 300 mg PO Q8HR 08/05/25 08/05/25 History glipizide 5 mg-metformin 500 mg 1 tab PO BID 08/05/25 08/05/25 History tablet Allergies Allergy/AdvReac Type Severity Reaction Status Date / Time Penicillins Allergy Severe Swelling Verified 08/04/25 18:49 of Lip/Tongue/Throat Exam Vital Signs Temp Pulse Resp BP Pulse Ox O2 Del Method 97.1 F 71 18 142/66 H 96 Room Air 08/05/25 07:59 08/05/25 07:59 08/05/25 07:59 08/05/25 07:59 08/05/25 07:59 08/05/25 07:59 Constitutional Constitutional: no acute distress Routine Extremities Exam Comments: Patient has some cellulitis of right foot no significant edema. He has palpable dorsalis pedis and posterior tibial pulses. He has edema and erythema of right fourth toe with ulceration on plantar aspect of distal toe. No evidence of abscess or drainage at this time Assessment & Plan Additional Assessment Additional comments: Osteomyelitis of right fourth toe Plan Options including antibiotic treatment versus right fourth toe amputation discussed with the patient via installation drafter. Patient does not wish to proceed with surgery and wishes to continue antibiotic treatment. Patient can be treated with antibiotics and follow-up with supervisor scrap preparation upon discharge
[2025-08-05] MEDS: VANCOMYCIN/NS 750 MG IVPB 750 MG/150 ML BAG 120 MG IV ×2 (10:57→22:36)
--- NOTE | 2025-08-05 11:00 | PC.SS ---
Rounding: Pt pending Dr. Zimmer consult. SX vs IV ABX
[2025-08-05] MEDS: INSULIN LISPRO (AdmeLOG) 1 UNIT/0.01 ML UNIT SC ×3 (12:00→20:42)
--- NOTE | 2025-08-05 16:47 | PC.SS ---
Addendum entered by Kylah Yusuf 08/05/25 17:49: Verbal report to APS completed with Debbi DE LA TORRE. SOC 341 faxed to [phone] and hard copy placed in chart. Debbi BISHOP requested SS contact APS [phone] and provide update when patient is ready for discharge. Original Note: 75YO male, reason for visit: OSTEOMYELTIS OF RIGHT TOE. ? SS contacted patient via telephone. Patient is Maltese speaking. Role and purpose of today?s contact was explained. Patient confirmed his demographic information. Physical address: [id number] [place] [address]. Patient stated his Primary Medical Surrogate Decision Maker is his spouse, Rosa Baeza [phone]. Prior to hospitalization, patient stated he requires maximum assistance with his ADLs and utilizes a thrifted walker to ambulate. Patient stated he and his spouse live alone. Patient reports having a daughter who occasionally assists him and his spouse in the home. Patient reports having difficulty with preparing own meals and cleaning their home. [facility]: Dr. Shaikh. Last appt. was April 2025. Next appt. is 08/06/25. Discharge plan was discussed, patient requesting to return home when medically clear. Patient stated his spouse needs support with care and refuses to leave her side. Patient has declined SNF at this time. Next of kin: Rosa Baeza [phone] Discharge plan: Home, transportation may be needed
[2025-08-05] MEDS: ATORVASTATIN CALCIUM 20 MG TABLET PO (20:42)
[2025-08-05] MEDS: ACETAMINOPHEN 325 MG TABLET 650 MG PO (20:42)
[2025-08-06] VITALS: BP 105/64; PULSE 66; RESP 18; TEMP 36.4; O2SAT 97
[2025-08-06 04:00] VITALS: BP 122/71; PULSE 69; RESP 18; TEMP 36.4; O2SAT 96
[2025-08-06] MEDS: GABAPENTIN 300 MG CAPSULE PO ×3 (05:36→21:33)
[2025-08-06] MEDS: CEFEPIME INJ 2 GM in SODIUM CHLORIDE 0.9% (Popper) 50 ML IV ×3 (05:36→21:00)
[2025-08-06 06:03] LABS: Basophils # (Auto) 0.0 Thou/mm3 (0.0-0.2); Basophils % (Auto) 0 % (0-2.5); Eosinophils # (Auto) 0.3 Thou/mm3 (0.0-0.5); Eosinophils % (Auto) 5 % (0-10); Hematocrit 44.9 % (41.0-53.0); Hemoglobin 14.8 g/dL (13.5-16.0); Immature Granulocytes Auto 0.05 Thou/mm3 (0.00-0.00); Lymphocytes # (Auto) 2.3 Thou/mm3 (1.0-4.8); Lymphocytes % (Auto) 33 % (10-50); Mean Corpuscular HGB Conc 33.0 g/dl (31.0-37.0); Mean Corpuscular Hemoglobin 31.9 pg (25.0-35.0); Mean Corpuscular Volume 97 fL (80-100); Monocytes # (Auto) 0.6 Thou/mm3 (0.0-0.8); Monocytes % (Auto) 9 % (0-12); Neutrophils # (Auto) 3.6 Thou/mm3 (1.8-7.7); Neutrophils % (Auto) 52 % (37-80); Nucleated Red Blood Cell # 0.00 Thou/mm3 (0.00-0.00); Nucleated Red Blood Cell % 0 /100 WBC (0); Platelet Count 213 Thou/mm3 (140-440); RDW Standard Deviation 45.2 fL (35.1-43.9); Red Blood Count 4.64 Miln/mm3 (4.50-5.90); White Blood Count 6.8 Thou/mm3 (3.8-10.6)
[2025-08-06 06:33] LABS: Anion Gap 9 (7-16); BUN/Creatinine Ratio 19 Ratio (12-20); Blood Urea Nitrogen 13 mg/dL (9-23); Calcium 9.1 mg/dL (8.3-10.6); Carbon Dioxide 23.8 mMol/L (20.0-31.0); Chloride 109 mMol/L (98-107); Creatinine (Component) 0.7 mg/dL (0.6-1.3); Estimated Creatinine Clearance 90.8 mL/min (>60); Glucose 162 mg/dL (74-106); Magnesium 2.1 mg/dL (1.6-2.6); Osmolality,Calculated 287 (275-295); Phosphorous 3.8 mg/dL (2.4-5.1); Potassium 4.5 mMol/L (3.4-5.1); Sodium 142 mMol/L (136-145); eGFR > 60 See Note
[2025-08-06 08:00] VITALS: BP 129/75; PULSE 63; RESP 16; TEMP 36.4; O2SAT 96
[2025-08-06] MEDS: INSULIN LISPRO (AdmeLOG) 1 UNIT/0.01 ML UNIT SC ×4 (08:01→20:29)
--- NOTE | 2025-08-06 08:56 | PD.RESPRO ---
Documentation for date of: 08/06/25 Subjective Subjective Interval history: 08/05/2025: Labs reviewed and patient examined at the bedside. Patient still complains of numbness and tingling in lower extremities. Erythema, swelling, and areas of black discoloration likely represents ongoing necrosis involving the right fourth toe. Foot XR (08/04/2025) showed suspicion for early osteomyelitis. General Surgery, Dr. Zimmer, has been consulted for possible surgical debridement or resection, however, patient did not want to get surgical treatment. Patient will follow up with [facility] upon discharge. Will continue with antibiotic treatment in hospital. 08/06/2025: Labs reviewed and patient examined at the bedside. After antibiotic treatment, patient has been improving. Patient will continue antibiotics for 1 more day before discharge. Patient will be required to follow up with [facility] in outpatient setting. Exam Vital Signs Temp Pulse Resp BP Pulse Ox O2 Del Method 97.5 F 63 16 129/75 96 Room Air 08/06/25 08:00 08/06/25 08:00 08/06/25 08:00 08/06/25 08:00 08/06/25 08:00 08/06/25 08:00 Narrative Exam General: No acute distress, well nourished, AAO x3 Eye: PERRL, EOMI, normal conjunctiva, no scleral icterus HENT: Normocephalic, atraumatic, hearing intact to conversation at normal volume, moist oral mucosa Neck: Supple, non-tender, no JVD, no lymphadenopathy Lungs: Non-labored respirations, symmetric chest rise, Clear to auscultate bilaterally, No wheezing, rhonchi, crackles Heart: Peripheral pulses intact bilaterally, Regular Rate and Rhythm. Abdomen: Soft, non-tender, non-distended, no palpable masses Musculoskeletal: Normal range of motion and strength, Erythema, swelling, painless, black discoloration of right 4th toe. Ulcers in plantar aspects of foot. Skin: Skin is warm, dry, no rashes or lesions. Psychiatric: Cooperative, appropriate mood and affect, Awake and alert, not agitated Neuro: Cranial nerves II-XII grossly intact. Strength 5/5 throughout. Sensations intact to light touch. Objective Labs 08/06/25 05:00 08/06/25 05:00 Labs: Laboratory Results - last 24 hr 08/06/25 05:00 WBC 6.8 RBC 4.64 Hgb 14.8 Hct 44.9 MCV 97 MCH 31.9 MCHC 33.0 RDW Std Deviation 45.2 H Plt Count 213 Neut % (Auto) 52 Lymph % (Auto) 33 [place] % (Auto) 9 Eos % (Auto) 5 Baso % (Auto) 0 Neut # (Auto) 3.6 Lymph # (Auto) 2.3 [place] # (Auto) 0.6 Eos # (Auto) 0.3 Baso # (Auto) 0.0 Immature Gran # (Auto) 0.05 H Absolute Nucleated RBC 0.00 Immature Gran % 1 H Nucleated RBC % 0 Sodium 142 Potassium 4.5 Chloride 109 H Carbon Dioxide 23.8 Anion Gap 9 BUN 13 Creatinine 0.7 Estim Creat Clear Calc 90.8 eGFR > 60 BUN/Creatinine Ratio 19 Glucose 162 H D Calculated Osmolality 287 Calcium 9.1 Phosphorus 3.8 Magnesium 2.1 ABG Interpretation ABG results: 08/04/25 19:28 VBG pH 7.41 VBG pCO2 40 VBG pO2 58 VBG Base Excess 1 Quality Measures Quality Measures none Advance care planning discussed with:: patient Assessment & Plan Assessment Current Active Medications: Generic Name Dose Route Start Last Admin Trade Name Freq PRN Reason Stop Dose Admin Acetaminophen 650 mg 08/05/25 00:12 Acetaminophen 325 Mg Tablet PO 09/04/25 00:11 Q6H PRN Fever >101.5 Acetaminophen 650 mg 08/05/25 20:35 08/05/25 20:42 Acetaminophen 325 Mg Tablet PO 09/04/25 20:34 650 mg Q6HR PRN Administration PAIN SCALE 1-3 (mild Atorvastatin Calcium 20 mg 08/05/25 21:00 08/05/25 20:42 Atorvastatin Calcium 20 Mg Tablet PO 09/04/25 20:59 20 mg HS PETTY Administration Dextrose 25 ml 08/05/25 00:18 Dextrose 50%-Water Inj 50 Ml Syringe IV 09/04/25 00:17 Q15MIN PRN BG 50-70 responsive npo pt Dextrose 50 ml 08/05/25 00:18 Dextrose 50%-Water Inj 50 Ml Syringe IV 09/04/25 00:17 Q15MIN PRN BG <50 OR BG <70 & pt unresponsive Gabapentin 300 mg 08/05/25 06:00 08/06/25 05:36 Gabapentin 300 Mg Capsule PO 09/04/25 05:59 300 mg Q8HR PETTY Administration Glucagon 1 mg 08/05/25 00:18 Glucagon Inj 1 Mg Vial IM Q15MIN PRN BG <70, and no IV access Heparin Sodium (Porcine) 5,000 unit 08/05/25 09:00 08/05/25 20:42 Heparin Sod Inj 5000 Unit/Ml Vial SC 08/19/25 08:59 5,000 unit BID PETTY Administration Vancomycin/Sodium Chloride 750 mg in 150 mls @ 120 mls/hr 08/05/25 10:00 08/05/25 22:36 Vancomycin/Ns 750 Mg Ivpb IV 08/12/25 09:59 120 mls/hr BID@1000,2200 PETTY Administration Protocol Cefepime HCl 2 gm/ Sodium 50 mls @ 100 mls/hr 08/05/25 14:00 08/06/25 05:36 Chloride IV 08/12/25 02:22 100 mls/hr Q8HR PETTY Administration Insulin Human Lispro 0 unit 08/05/25 07:30 08/06/25 08:01 Insulin Lispro (Admelog) 1 Unit/0.01 Ml Unit SC 09/04/25 07:29 2 unit ACHS PETTY Administration Protocol Pharmacy Consult 1 each 08/05/25 09:00 Vancomycin Pharmacy To Dose 1 Each Each IV 09/04/25 08:59 QDAY PRN PROTOCOL Plan Mr. Baeza, is a 75 year-old male with past medical history hypertension, hyperlipidemia and type 2 diabetes presented to the ED on 08/04/2025 with chief complaint right foot fourth toe redness and sweeling. Admitted for suspicion of osteomyelitis evaluation and management. #Osteomyelitis of right 4th toe #Diabetic foot -Diabetic ulcers present. Patient does not regularly check his feet for injuries or abnormalities. -Unlikely severe infection as patient did not exhibit any systemic toxicity or metabolic instability. No leukocytosis, No fever, No rapid or extensive erythema, and foot XR result. -Likely moderate osteomyelitis, as the extend of erythema is >2cm, (involves entire 4th toe). -General Surgery, Dr. Zimmer, has been consulted for possible surgical debridement or resection, however, patient did not want to get surgical treatment. -BC (08/05/2025): No growth for 24 hours Plan: -Will continue with antibiotic treatment in hospital. -Cefepine 2g IV Q8hr (08/05-) and Vancomycin (08/05-) -Patient will follow up with [facility] upon discharge. -CTM eletrolytes # Insulin-dependent type 2 diabetes # Diabetic neuropathy On admission glucose 322, patient is 4 units of insulin regular. Glucose improved to 162. Last A1c on 07/25/2025 was 9.5. Patient on home Jardiance 25 mg, glipizide/metformin 162 -Resume home gabapentin 300 mg for neuropathy -Start insulin sliding scale -Glucose checks ACHS #Hyperlipidemia -Resume home Lipitor 20 mg p.o. at bedtime #Primary hypertension Home medication benazepril 5 mg p.o Hospital management: Lines: peripheral IV Diet: Cardiac assist DVT prophylaxis: Heparin SC Disposition: Med surg for management of suspicion of osteomyelitis evaluation and management CODE STATUS: Full code Assessment and plan discussed with my attending physician Dr. Hawa Lott (PGY-1)- Internal medicine resident Attending Provider Attestation/Addendum patient currently seen and examined with resident physician Dr. Lott. Note reviewed, agree with findings and recommendations. rt fourth toe osteomyelitis-- continue abx. sx converting operator consulted.pt declines any sx. will give po abx- 4 weeks
[2025-08-06 09:42] LABS: Vancomycin,Trough 10.0 mcg/mL (5.0-10.0)
[2025-08-06] MEDS: HEPARIN SOD INJ 5000 UNIT/ML VIAL SC ×2 (10:14→20:30)
[2025-08-06] MEDS: VANCOMYCIN/NS 1 GM IVPB 200 ML IV ×2 (11:27→21:33)
[2025-08-06 12:00] VITALS: BP 127/73; PULSE 74; RESP 16; TEMP 36.8; O2SAT 95
[2025-08-06 16:00] VITALS: BP 125/62; PULSE 76; RESP 17; TEMP 36.7; O2SAT 96
--- NOTE | 2025-08-06 16:01 | PC.SS ---
Follow up note: On IV antibiotic. Wound dressing changes.
[2025-08-06 20:00] VITALS: BP 125/65; PULSE 71; RESP 19; TEMP 36.4; O2SAT 95
[2025-08-06] MEDS: ATORVASTATIN CALCIUM 20 MG TABLET PO (20:30)
[2025-08-07] VITALS: BP 137/68; PULSE 66; RESP 18; TEMP 36.4; O2SAT 99
[2025-08-07 04:00] VITALS: BP 125/66; PULSE 66; RESP 16; TEMP 36.6; O2SAT 97
[2025-08-07 05:22] LABS: Basophils # (Auto) 0.1 Thou/mm3 (0.0-0.2); Basophils % (Auto) 1 % (0-2.5); Eosinophils # (Auto) 0.4 Thou/mm3 (0.0-0.5); Eosinophils % (Auto) 5 % (0-10); Hematocrit 46.4 % (41.0-53.0); Hemoglobin 15.3 g/dL (13.5-16.0); Immature Granulocytes Auto 0.07 Thou/mm3 (0.00-0.00); Lymphocytes # (Auto) 2.4 Thou/mm3 (1.0-4.8); Lymphocytes % (Auto) 28 % (10-50); Mean Corpuscular HGB Conc 33.0 g/dl (31.0-37.0); Mean Corpuscular Hemoglobin 31.9 pg (25.0-35.0); Mean Corpuscular Volume 97 fL (80-100); Monocytes # (Auto) 0.6 Thou/mm3 (0.0-0.8); Monocytes % (Auto) 7 % (0-12); Neutrophils # (Auto) 5.0 Thou/mm3 (1.8-7.7); Neutrophils % (Auto) 59 % (37-80); Nucleated Red Blood Cell # 0.00 Thou/mm3 (0.00-0.00); Nucleated Red Blood Cell % 0 /100 WBC (0); Platelet Count 203 Thou/mm3 (140-440); RDW Standard Deviation 44.1 fL (35.1-43.9); Red Blood Count 4.80 Miln/mm3 (4.50-5.90); White Blood Count 8.6 Thou/mm3 (3.8-10.6)
[2025-08-07 05:38] LABS: Anion Gap 11 (7-16); BUN/Creatinine Ratio 17 Ratio (12-20); Blood Urea Nitrogen 12 mg/dL (9-23); Calcium 9.0 mg/dL (8.3-10.6); Carbon Dioxide 22.4 mMol/L (20.0-31.0); Chloride 109 mMol/L (98-107); Creatinine (Component) 0.7 mg/dL (0.6-1.3); Estimated Creatinine Clearance 90.8 mL/min (>60); Glucose 153 mg/dL (74-106); Magnesium 2.1 mg/dL (1.6-2.6); Osmolality,Calculated 285 (275-295); Phosphorous 3.6 mg/dL (2.4-5.1); Potassium 4.3 mMol/L (3.4-5.1); Sodium 142 mMol/L (136-145); eGFR > 60 See Note
[2025-08-07] MEDS: CEFEPIME INJ 2 GM in SODIUM CHLORIDE 0.9% (Popper) 50 ML IV (05:38)
[2025-08-07] MEDS: GABAPENTIN 300 MG CAPSULE PO (05:39)
[2025-08-07 07:20] VITALS: BP 124/73; PULSE 72; RESP 17; TEMP 36.5; O2SAT 96
[2025-08-07] MEDS: INSULIN LISPRO (AdmeLOG) 1 UNIT/0.01 ML UNIT SC ×2 (07:36→11:46)
--- NOTE | 2025-08-07 09:30 | PD.RESDS ---
Planned Discharge Date 08/07/25 DS: Providers Provider Date of admission: 08/05/25 00:12 Primary care physician: John Shaikh MD Admitting Provider: Kush Soriano MD Attending Provider on Admission: Kush Soriano MD Consults: 08/05/25 00:17 Referral Wound Care Stat Comment: 08/05/25 13:13 Consult to General Surgery Routine Comment: Consulting Provider: Veronica Zimmer 08/06/25 12:11 Referral OP Wound Healing Dept Routine Comment: Instructions: Right 4th toe DM ulcer 08/06/25 12:12 Referral Nutritional Services Routine Comment: Instructions: DM ulcer Attending Provider on DC: Verena Lott DO Discharging Provider: Verena Lott DO DS: Diagnosis Problem List Completed Was Problem List Reviewed/Reconciled?: Yes Hospital Course Hospital Course Hospital course: Summary: Mr. Baeza, is a 75 year-old male with past medical history hypertension, hyperlipidemia and type 2 diabetes presented to the ED on 08/04/2025 with chief complaint right foot fourth toe redness and edema. Patient has been diagnosed as osteomyelitis. Antibiotics has been given. Surgical consultation was done, but patient? refused any surgical treatment. Patient decided to continue on with just antibiotics until discharge ED Course: -Initial vitals were BP 140/80, pulse 95, respiratory 18, temperature 91.1, O2 sat 97% on room air -Labs significant for glucose 287 otherwise unremarkable -Imaging included right foot x-ray showed severe osteopenia soft tissue swelling around the fourth digit with early cortical erosion involving the ungual tuft deep distal phalanx fourth digit. Suspicion for early osteomyelitis -In the ED, patient was given vancomycin IV x 1, bacitracin, insulin regular 4 unit x 1. -Patient was admitted for early suspicion osteomyelitis evaluation and management. Hospital Course: Patient was given Cefepime 2g IV q8hr and Vancomycin throughout hospital stay. His black discoloration on right 4th toe has decreased and symptom improved. He was advised on strict diabetes control. Instructed to follow up with [facility] [employer] outpatient. 14 days of Cefuroxime axetil 500 mg PO bid and doxycycline 100mg PO qd has been prescribed to continue after discharge. Instructions: f/u with dr. shaikh in 1 week #Osteomyelitis of right 4th toe #Diabetic foot #Insulin-dependent type 2 diabetes #Diabetic neuropathy #Hyperlipidemia #Primary hypertension Safe to discharge to HOME Status at Discharge Cognitive/behavioral status at discharge: Stable Functional status at discharge: independent ambulation Overall status at discharge: patient is back to baseline Time Spent with Patient Time attestation: Total time spent providing and/or coordinating discharge services: Time spent: Greater than 30 minutes Exam Vital Signs Temp Pulse Resp BP Pulse Ox O2 Del Method 97.7 F 72 17 124/73 96 Room Air 08/07/25 07:20 08/07/25 07:20 08/07/25 07:20 08/07/25 07:20 08/07/25 07:20 08/07/25 07:20 Narrative Exam General: No acute distress, well nourished, AAO x3 Eye: PERRL, EOMI, normal conjunctiva, no scleral icterus HENT: Normocephalic, atraumatic, hearing intact to conversation at normal volume, moist oral mucosa Neck: Supple, non-tender, no JVD, no lymphadenopathy Lungs: Non-labored respirations, symmetric chest rise, Clear to auscultate bilaterally, No wheezing, rhonchi, crackles Heart: Peripheral pulses intact bilaterally, Regular Rate and Rhythm. Abdomen: Soft, non-tender, non-distended, no palpable masses Musculoskeletal: Normal range of motion and strength, Erythema, swelling, painless, black discoloration of right 4th toe. Ulcers in plantar aspects of foot. Skin: Skin is warm, dry, no rashes or lesions. Psychiatric: Cooperative, appropriate mood and affect, Awake and alert, not agitated Neuro: Cranial nerves II-XII grossly intact. Strength 5/5 throughout. Sensations intact to light touch. Discharge Plan Plan Patient Disposition: Home w/HOME HEALTH Patient condition on transfer: Stable Care Plan Goals: 1) Follow up with [facility], [address] [place] [address]. Call [phone] for appointment. 2) Ambulate with the heel of your right foot, avoid walking using your affected toe, Elevate right ankle above heart level when laying or sitting down to help with swelling. 3) Right 4th toe: swab with betadine twice a day. Avoid tight fitting shoes until your wound is healed. If active bleeding occurs, apply tight dressing and return to MD or ER. ? Notify primary doctor or return to Emergency Room if any of the following: ? Fever above 100.6? F. ? Increased pain ? Increase swelling ? Red streaks around your wound ? Drainage becomes foul smelling or changes color ? The wound is larger or deeper ? The wound looks dried out or dark ? Bleeding that does not stop with holding pressure Prescriptions/Referrals Prescriptions/Med Rec: New cefuroxime axetil 500 mg tablet 500 mg PO BID Qty: 28 0RF doxycycline monohydrate 100 mg capsule 100 mg PO QDAY Qty: 14 0RF Continued glipizide-metformin 5-500 mg tablet 1 tab PO BID atorvastatin 20 mg tablet 20 mg PO HS benazepril 5 mg tablet 5 mg PO QDAY gabapentin 300 mg capsule 300 mg PO Q8HR Jardiance 25 mg tablet 25 mg PO QDAY Referrals: John Shaikh MD [Primary Care Provider, Nephrology] Patient/Caregiver Discharge Instructions Discharge Activity: activity as tolerated Education Materials: Nutrition for Wound Healing, Discharge Instructions for ..., Wound Care Dc, Preventing Surgical Site Infections, Your Diabetes Foot Care Program Print Language: Niuean Activity Restrictions/Additional Instructions: f/u with dr. shaikh in 1 week Discharge Order Discharge Orders: Discharge (Routine); Ordered 08/07/25 Ordered By: John Shaikh Quality Discharge Quality Measures VTE prophylaxis Attestestation MD Attestation patient currently seen and examined with resident physician Dr. Lott. Note reviewed, agree with findings and recommendations. Patient admitted with right toe cellulitis/osteomyelitis. Will discharge him on p.o. antibiotics for 2 weeks.
[2025-08-07] MEDS: VANCOMYCIN/NS 1 GM IVPB 200 ML IV (10:32)
[2025-08-07] MEDS: HEPARIN SOD INJ 5000 UNIT/ML VIAL SC (11:19)
[2025-08-07 12:00] VITALS: BP 135/65; PULSE 72; RESP 20; TEMP 36.8; O2SAT 95
--- NOTE | 2025-08-07 16:49 | PC.CC ---
Addendum entered by Rhonda Hill RN 08/07/25 16:57: Patient has been booked with [facility], SOC is 08/10 Original Note: Sent HH referral to all agencies
== END 2025-08-07 14:15 | disposition home health service (06) | DRG 638 ==
LOC: SERX 20:38 → SERHOLD 08-05 00:59 → S3SX 08-05 01:19
PROVIDERS: Nurse Practitioner Family; Admitting Provider Student in an Organized Health Care Education/Training Program; Emergency Provider Emergency Medicine; PCP Internal Medicine; Visit Provider Student in an Organized Health Care Education/Training Program
DX: E11.69 Type 2 diabetes mellitus with other specified complication (principal); L03.115 Cellulitis of right lower limb; M86.171 Other acute osteomyelitis, right ankle and foot; E11.622 Type 2 diabetes mellitus with other skin ulcer; I10 Essential (primary) hypertension; E78.5 Hyperlipidemia, unspecified; E11.40 Type 2 diabetes mellitus with diabetic neuropathy, unspecified; E11.65 Type 2 diabetes mellitus with hyperglycemia; E11.621 Type 2 diabetes mellitus with foot ulcer; Z88.0 Allergy status to penicillin; Z79.4 Long term (current) use of insulin; Z79.84 Long term (current) use of oral hypoglycemic drugs; Z79.899 Other long term (current) drug therapy; M85.80 Other specified disorders of bone density and structure, unspecified site
CPT/HCPCS: 36415; 73630; 80048; 80053; 80202; 82803; 83735; 84100; 85025; 85652; 86140; 87040; 87070; 87081; 87205; 96365; 96366; 99284; J0692; J0744; J1644; J1815; J3370; J3373; J7030; J7050; A9270